=== PATIENT | male | born 1950 | race Caucasian/White ===

== ENCOUNTER 2022-10-21 00:49 | Day surgery (SDC) | payer MEDICARE, SELFPAY ==
[2022-10-09 13:32] VITALS: BMI 39.0
--- NOTE | 2022-10-20 12:33 | PM.HPGS ---
History of Present Illness History of Present Illness Consent: Risks, benefits, and alternatives have been discussed and questions answered. Patient agrees to proceed with procedure. Chief complaint: positive cologuard Narrative: Estevan Tapia Jr is a 72 year old male referred for colon cancer screening Review of Systems Review of Systems: All systems reviewed & are unremarkable except as noted in HPI and below PMFSH Social History Social History Smoking packs per day: 2,017 Smoking cigarettes per day: 40,340.0 Years smoked: 50 Smoking pack-years: 064850.00 Smoking status: Current every day smoker Alcohol intake: current Living arrangements: with family Meds Home Medications and Allergies Home Medications Medication Instructions Recorded Confirmed Type allopurinol 300 mg tablet 300 mg PO DAILY 10/12/22 10/12/22 History atorvastatin 40 mg tablet 80 mg PO DAILY 10/12/22 10/12/22 History fluticasone fur. 100 mcg-umeclid 100 inh inhalation DAILY 10/12/22 10/12/22 History 62.5 mcg-vilant 25 mcg inhalat.powder (Trelegy Ellipta) furosemide 40 mg tablet 80 mg PO DAILY 10/12/22 10/12/22 History Allergies Allergy/AdvReac Type Severity Reaction Status Date / Time No Known Allergies Allergy Verified 10/21/22 09:23 Exam Const: General: alert Orientation/consciousness: patient oriented x3 Resp: Auscultation: clear to auscultation bilaterally Cardio: Rhythm: regular rhythm GI: GI Palp: Yes Soft to palpation and No Tenderness to palpation present (GI) Neuro: General: patient oriented x3 Assessment and Plan Assessment and plan (1) Colon cancer screening: Code(s): Z12.11 - Encounter for screening for malignant neoplasm of colon Status: Acute Assessment and Plan: Colonoscopy with possible biopsy or polypectomy or cautery or injection of substances.
[2022-10-21 09:25] VITALS: BP 171/82; PULSE 78; RESP 18; TEMP 36.2; O2SAT 97
[2022-10-21] MEDS: LACTATED RINGERS 1,000 ML 150 ML IV CONT (09:38)
--- NOTE | 2022-10-21 10:09 | P.PNAN_ITS ---
Anes - Initial Pre Proc Eval Procedure: Operation Date: 10/21/22 10:30 Proposed Procedures p Colonoscopy - Chandler Sabillon MD Date/Time: 10/21/22 10:09 Surgeon: Chandler Sabillon MD Pre Op Diagnosis: positive cologuard Patient Data Age: 72 Gender: M Height: 1.75 m Weight: 119.8 kg Last Vital Signs Temp 97.2 F L 10/21/22 09:25 Pulse 78 10/21/22 09:25 Resp 18 10/21/22 09:25 BP 171/82 H 10/21/22 09:25 Pulse Ox 97 10/21/22 09:25 O2 Del Method Room Air 10/21/22 09:25 Allergies Allergy/AdvReac Type Severity Reaction Status Date / Time No Known Allergies Allergy Verified 10/21/22 09:23 Home Medications Medication Instructions Recorded Confirmed Type allopurinol 300 mg tablet 300 mg PO DAILY 10/12/22 10/12/22 History atorvastatin 40 mg tablet 80 mg PO DAILY 10/12/22 10/12/22 History fluticasone fur. 100 mcg-umeclid 100 inh inhalation DAILY 10/12/22 10/12/22 History 62.5 mcg-vilant 25 mcg inhalat.powder (Trelegy Ellipta) furosemide 40 mg tablet 80 mg PO DAILY 10/12/22 10/12/22 History Patient hx anesthesia problems: none Family hx anesthesia problems: none Results Review: All pre-operative results and documents have been reviewed as part of the pre- operative evaluation. [facility] Social History Social History Smoking packs per day: 2,017 Smoking cigarettes per day: 40,340.0 Years smoked: 50 Smoking pack-years: 019233.00 Smoking status: Current every day smoker Alcohol intake: current Living arrangements: with family Anes - Eval Final PreProcedure Day of Procedure 10/21/22 10:09 Patient weight: morbidly obese Heart: regular rate and rhythm Lungs: clear to auscultation Airway: Mallampati scale class II Neurological: alert and oriented Last oral intake: >/= 8 hours ASA classification: III Emergent: no Anesthetic plan: proceed Anesthesia type and monitoring: general GIVS and standard monitoring Results Review: All pre-operative results and documents have been reviewed as part of the pre- operative evaluation. Informed Consent: The patient's anesthetic plan and its attendant risks and benefits were discussed with the patient/family/POA. Questions were solicited and answers provided to the satisfaction of the patient/family/POA.
[2022-10-21 10:51] VITALS: BP 141/74; PULSE 79; RESP 19; O2SAT 95
[2022-10-21 11:01] VITALS: BP 144/85; PULSE 88; RESP 20; O2SAT 95
[2022-10-21 11:11] VITALS: BP 151/89; PULSE 85; RESP 22; O2SAT 96
== END 2022-10-21 11:17 | disposition home or self-care (01) ==
PROVIDERS: PCP Family Medicine; Visit Provider Internal Medicine Gastroenterology
PROC: 0DJD8ZZ Inspection of Lower Intestinal Tract, Via Natural or Artificial Opening Endoscopic (ICD-10-PCS; CPT 45378; principal; 2022-10-21 10:30)
DX: Z12.11 Encounter for screening for malignant neoplasm of colon (principal); D37.4 Neoplasm of uncertain behavior of colon; K57.30 Diverticulosis of large intestine without perforation or abscess without bleeding; R19.5 Other fecal abnormalities; Z79.51 Long term (current) use of inhaled steroids; F17.210 Nicotine dependence, cigarettes, uncomplicated; E66.01 Morbid (severe) obesity due to excess calories; Z68.39 Body mass index [BMI] 39.0-39.9, adult
CPT/HCPCS: 45380; 45381; 88305; J2704; J7120

== ENCOUNTER 2022-10-28 10:52 | Outpatient (CLI) | payer MEDICARE, SELFPAY ==
--- NOTE | ~2022-10-28 | CT_ITS ---
EXAMINATION: CT abdomen pelvis w con DATE: 10/28/2022 11:29 INDICATION: Colon cancer. TECHNIQUE: Computed tomography (CT) of the abdomen and pelvis was performed with 100 mL Omnipaque 350 intravenous contrast. Automated exposure control and iterative reconstruction technique were employe d. The dose-length product was 1455.37 mGy-cm. COMPARISON: None. FINDINGS: The visualized portions of the lung bases demonstrate mild atelectasis. Right lung calcific ations are consistent with old granulomatous disease. No pleural effusion. There is left atrial enlar gement of the heart. There are coronary artery calcifications. No pericardial effusion. The liver, ga llbladder, spleen, pancreas, and adrenal glands are normal. There is cortical thinning of the kidneys . There is a 9 mm hyperdense exophytic mass of right kidney. There are cysts in left kidney measuring up to 4.3 cm. The prostate is moderately enlarged. There is diverticulosis of the colon without evid ence of diverticulitis. There are no dilated loops of bowel. The appendix is normal. There are no pat hologically enlarged lymph nodes. There is no free intraperitoneal fluid. There is moderate lumbar sp ondylosis and mild thoracic spondylosis. IMPRESSION: 1. No evidence of metastatic disease. 2. 9 mm right kidney mass, which may be a hemorrhagic cyst or less likely a neoplasm. Abdomen CT or M RI without and with contrast is recommended. Reviewed, dictated and finalized at location A. [facility] IMPRESSION: 1. No evidence of metastatic disease. 2. 9 mm right kidney mass, which may be a hemorrhagic cyst or less likely a shaunna plasm. Abdomen CT or MRI without and with contrast is recommended.
== END 2022-10-28 10:53 | disposition home or self-care (01) ==
PROVIDERS: PCP Family Medicine; Visit Provider Internal Medicine Gastroenterology
DX: C18.9 Malignant neoplasm of colon, unspecified (principal); N28.89 Other specified disorders of kidney and ureter
CPT/HCPCS: 74177; Q9967